=== PATIENT | female | born 1955 | race Caucasian/White ===

== ENCOUNTER 2017-10-30 19:34 | Emergency (ER) | END 2017-10-30 21:35 | disposition home or self-care (01) ==

== ENCOUNTER → 2017-10-30 | Outpatient (CLI) | payer OTHER ==
[~2017-10-30] MED LIST: AMLO5; AMLO5 PO; ASCO500; ASPI81CH; Betamethasone V15 G1; CEPH500 PO; CIPR500 PO; CYCL10 PO; DULO60; Flagyl500 MG PO; HYDACE5 PO; HYDPAM25; LOSA50 PO; METO25ER PO; MOMENI; MORP30ER PO; NAPR550 PO; Norco 5-325 Ta1 EACH PO; OPANA ER10 MG PO; OXYACE5T PO; OXYC10ER; OXYMORPHONE HCL10 M1; OXYMORPHONE HCL10 MG PO; VENL37.5ER; VOLTAREN
[2017-10-30 19:14] LABS: BASOPHILS ABSOLUTE AUTO 0.03 K/mm3 (0.00-0.23); BASOPHILS PERCENT AUTO 0 % (0-2); EOSINOPHILS PERCENT AUTO 4 % (0-6); Hematocrit 35.9 % (33.0-51.0); Hemoglobin 11.4 g/dL (11.5-16.0); IMMATURE GRAN ABSOLUTE AUTO 0.01 K/mm3 (0.00-0.10); IMMATURE GRAN PERCENT AUTO 0 % (0-1); LYMPHOCYTES ABSOLUTE AUTO 1.64 K/mm3 (0.84-5.20); LYMPHOCYTES PERCENT AUTO 22 % (21-46); MONOCYTES ABSOLUTE AUTO 0.61 K/mm3 (0.16-1.47); MONOCYTES PERCENT AUTO 8 % (4-13); Mean Corpuscular HGB 26.5 pg (26.0-34.0); Mean Corpuscular HGB Conc 31.8 g/dL (31.5-36.5); Mean Corpuscular Volume 84 fL (80-100); NEUTROPHILS ABSOLUTE AUTO 4.83 K/mm3 (1.96-9.15); NEUTROPHILS PERCENT AUTO 65 % (41-73); RDW Coefficient Variation 13.5 % (11.7-14.2); RDW Standard Deviation 41.1 fL (35.1-46.3); White Blood Cell Count 7.42 K/mm3 (4.00-11.30)
[2017-10-30 19:20] LABS: Test Name ASOL
[2017-10-30 19:21] LABS: Platelet Count 205 K/mm3 (150-400)
[2017-10-30 19:34] LABS: Alanine Aminotransfer (ALT/SGP 30 U/L (12-78); Albumin, Blood 3.4 g/dL (3.4-5.0); Albumin/Globulin Ratio 0.8 (0.8-1.8); Alk Phos 78 U/L (50-136); Anion Gap 8 mmol/L (6-16); Aspartate Aminotrans (AST/SGOT 29 U/L (12-37); Bilirubin, Total 0.3 mg/dL (0.1-1.0); Blood Urea Nitrogen 14 mg/dL (8-24); Bun/Creatinine Ratio 16.7 (12.0-20.0); CO2, Blood 27 mmol/L (21-32); Calcium, Blood 8.8 mg/dL (8.5-10.1); Chloride, Blood 102 mmol/L (98-108); Creatinine, Blood 0.84 mg/dL (0.40-1.00); Glomerular Filtration Rate >60 (60-); Glucose, Blood 107 mg/dL (70-99); Sodium, Blood 137 mmol/L (136-145); Total Protein, Blood 7.4 g/dL (6.4-8.2)
== END ==
LOC: LAB 17:23
PROVIDERS: Family Medicine
DX: K52.9 Noninfective gastroenteritis and colitis, unspecified (principal); R60.1 Generalized edema; R01.1 Cardiac murmur, unspecified
CPT/HCPCS: 80053; 85025; 85651; 86060

== ENCOUNTER 2019-04-08 20:22 | Emergency (ER) | payer OTHER ==
[~2019-04-08] VITALS: Ht 177.8 cm; Wt 90.7 kg
[2019-04-08] MEDS ORDERED: BUPRENORPHINE HC8 MG SL (21:50)
[2019-04-08 22:44] LABS: BASOPHILS ABSOLUTE AUTO 0.03 K/mm3 (0.00-0.23); BASOPHILS PERCENT AUTO 0 % (0-2); EOSINOPHILS ABSOLUTE AUTO 0.02 K/mm3 (0.00-0.68); EOSINOPHILS PERCENT AUTO 0 % (0-6); Hematocrit 40.9 % (33.0-51.0); Hemoglobin 13.2 g/dL (11.5-16.0); IMMATURE GRAN ABSOLUTE AUTO 0.04 K/mm3 (0.00-0.10); IMMATURE GRAN PERCENT AUTO 0 % (0-1); LYMPHOCYTES ABSOLUTE AUTO 0.97 K/mm3 (0.84-5.20); LYMPHOCYTES PERCENT AUTO 7 % (21-46); MONOCYTES ABSOLUTE AUTO 1.39 K/mm3 (0.16-1.47); MONOCYTES PERCENT AUTO 10 % (4-13); Mean Corpuscular HGB 26.2 pg (26.0-34.0); Mean Corpuscular HGB Conc 32.3 g/dL (31.5-36.5); Mean Corpuscular Volume 81 fL (80-100); Mean Platelet Volume 10.3 fL (9.1-12.4); NEUTROPHILS ABSOLUTE AUTO 12.16 K/mm3 (1.96-9.15); NEUTROPHILS PERCENT AUTO 83 % (41-73); Platelet Count 197 K/mm3 (150-400); RDW Standard Deviation 41.1 fL (35.1-46.3); Red Blood Cell Count 5.04 M/mm3 (3.80-5.20); White Blood Cell Count 14.61 K/mm3 (4.00-11.30)
[2019-04-08 23:01] LABS: Albumin, Blood 3.9 g/dL (3.4-5.0); Albumin/Globulin Ratio 1.1 (0.8-1.8); Bun/Creatinine Ratio 22.3 (12.0-20.0); Calcium, Blood 8.9 mg/dL (8.5-10.1); Creatinine, Blood 1.21 mg/dL (0.40-1.00); Globulin, Blood 3.5 g/dL (2.2-4.0); Potassium, Blood 4.2 mmol/L (3.5-5.5); Total Protein, Blood 7.4 g/dL (6.4-8.2)
[2019-04-09 00:21] LABS: Source, Urine Clean Catch
[2019-04-09] MEDS ORDERED: Cyclobenzaprine5 MG PO (00:24)
[2019-04-09 00:40] LABS: Bilirubin, Urine Neg (Neg); Blood, Urine Neg (Neg); Glucose Qualitative, Urine Neg (Neg); Ketones, Urine Neg (Neg); Leukocyte Esterase, Urine Neg (Neg); Nitrite, Urine Neg (Neg); Protein, Urine Neg (Neg); Specific Gravity, Urine 1.015 (1.003-1.022); Urobilinogen, Urine NORM (Normal)
[2019-04-09 00:43] LABS: Appearance, Urine Clear (Clear); Color, Urine Yellow (P-Yellow)
== END 2019-04-09 00:34 | disposition home or self-care (01) ==
LOC: ER 20:22
PROVIDERS: Emergency Medicine
DX: S92.902A Unspecified fracture of left foot, initial encounter for closed fracture (principal); S46.911A Strain of unspecified muscle, fascia and tendon at shoulder and upper arm level, right arm, initial encounter; R03.0 Elevated blood-pressure reading, without diagnosis of hypertension; R01.1 Cardiac murmur, unspecified; Z87.891 Personal history of nicotine dependence; X58.XXXA Exposure to other specified factors, initial encounter
CPT/HCPCS: 36415; 73030; 73630; 80053; 81003; 83605; 85025; 96360; 96372-59; 99284-25; A9270-GY; J1885; J7030

== ENCOUNTER → 2019-10-30 | Outpatient (CLI) | payer OTHER ==
[~2019-10-30] MED LIST changes: +BUPRENORPHINE HC8 MG SL; +Cyclobenzaprine5 MG PO; +ELIQUIS5 MG PO; +Lopressor 25 mg25 MG PO
== END | disposition home or self-care (01) ==
LOC: LAB SHORT 16:30 → LAB 16:30
DX: N39.0 Urinary tract infection, site not specified (principal)
CPT/HCPCS: 87086

== ENCOUNTER 2021-02-11 02:08 | Day surgery (SDC) | payer OTHER ==
[~2021-02-11 02:08] MED LIST changes: +CHLO25B PO; +FOLI1 PO; +METTREX2.5 PO; +NYSTRIT; +PREG75 PO; +SUBOXONE 8 MG-1 EACH SL
== END 2021-02-11 22:49 | disposition home or self-care (01) ==
LOC: WOUND 02:08
DX: L97.222 Non-pressure chronic ulcer of left calf with fat layer exposed (principal); I87.2 Venous insufficiency (chronic) (peripheral)
CPT/HCPCS: A9270; G0463

== ENCOUNTER 2021-02-18 00:14 | Day surgery (SDC) | payer OTHER | END 2021-02-18 22:45 | disposition home or self-care (01) | LOC: WOUND 00:14 | DX: L97.222 Non-pressure chronic ulcer of left calf with fat layer exposed (principal); L03.116 Cellulitis of left lower limb; I87.2 Venous insufficiency (chronic) (peripheral) | CPT/HCPCS: A9270; G0463 ==

== ENCOUNTER 2021-02-25 04:33 | Day surgery (SDC) | payer OTHER | END 2021-02-25 23:01 | disposition home or self-care (01) | LOC: WOUND 04:33 | DX: L97.222 Non-pressure chronic ulcer of left calf with fat layer exposed (principal); I87.2 Venous insufficiency (chronic) (peripheral); L03.116 Cellulitis of left lower limb | CPT/HCPCS: A9270; G0463 ==

== ENCOUNTER 2021-03-11 03:45 | Day surgery (SDC) | payer OTHER | END 2021-03-11 22:49 | disposition home or self-care (01) | LOC: WOUND 03:45 | DX: L97.222 Non-pressure chronic ulcer of left calf with fat layer exposed (principal); I87.2 Venous insufficiency (chronic) (peripheral); L03.116 Cellulitis of left lower limb | CPT/HCPCS: A9270 ==

== ENCOUNTER 2021-03-13 01:47 | Day surgery (SDC) | payer OTHER | END 2021-03-13 23:36 | disposition home or self-care (01) | LOC: WOUND 01:47 | DX: L97.222 Non-pressure chronic ulcer of left calf with fat layer exposed (principal); I87.2 Venous insufficiency (chronic) (peripheral); L03.116 Cellulitis of left lower limb ==

== ENCOUNTER 2021-03-25 03:57 | Day surgery (SDC) | payer OTHER | END 2021-03-25 23:52 | disposition home or self-care (01) | LOC: WOUND 03:57 | DX: L97.222 Non-pressure chronic ulcer of left calf with fat layer exposed (principal); L97.822 Non-pressure chronic ulcer of other part of left lower leg with fat layer exposed; I87.2 Venous insufficiency (chronic) (peripheral); L03.116 Cellulitis of left lower limb | CPT/HCPCS: A9270 ==

== ENCOUNTER 2021-04-01 06:26 | Day surgery (SDC) | payer OTHER | END 2021-04-01 22:48 | disposition home or self-care (01) | LOC: WOUND 06:26 | DX: L97.222 Non-pressure chronic ulcer of left calf with fat layer exposed (principal); L97.822 Non-pressure chronic ulcer of other part of left lower leg with fat layer exposed; L03.116 Cellulitis of left lower limb; I87.2 Venous insufficiency (chronic) (peripheral) | CPT/HCPCS: A9270 ==

== ENCOUNTER 2021-04-08 04:53 | Day surgery (SDC) | payer OTHER | END 2021-04-08 22:49 | disposition home or self-care (01) | LOC: WOUND 04:53 | DX: L97.222 Non-pressure chronic ulcer of left calf with fat layer exposed (principal); L03.116 Cellulitis of left lower limb; I87.2 Venous insufficiency (chronic) (peripheral) | CPT/HCPCS: A9270; G0463 ==

== ENCOUNTER → 2023-07-13 | Outpatient (CLI) | payer OTHER | END | disposition home or self-care (01) | LOC: LAB SHORT 07:10 → LAB 07:10 | DX: R93.89 Abnormal findings on diagnostic imaging of other specified body structures (principal) | CPT/HCPCS: 88173 ==

== ENCOUNTER → 2023-12-23 | Outpatient (CLI) | payer OTHER | LOC: LAB SHORT 17:25 → LAB 17:25 | DX: E03.9 Hypothyroidism, unspecified (principal) | CPT/HCPCS: 84443 ==

== ENCOUNTER → 2024-02-10 | Outpatient (CLI) | payer OTHER | END | disposition home or self-care (01) | LOC: LAB 14:15 → LAB SHORT 14:15 | DX: M06.9 Rheumatoid arthritis, unspecified (principal); G89.4 Chronic pain syndrome; I87.2 Venous insufficiency (chronic) (peripheral) | CPT/HCPCS: 83970 ==

== ENCOUNTER 2024-04-27 03:09 | Day surgery (SDC) | payer OTHER | END 2024-04-27 22:43 | disposition home or self-care (01) | LOC: WOUND 03:09 | DX: I87.333 Chronic venous hypertension (idiopathic) with ulcer and inflammation of bilateral lower extremity (principal); L97.812 Non-pressure chronic ulcer of other part of right lower leg with fat layer exposed; L97.822 Non-pressure chronic ulcer of other part of left lower leg with fat layer exposed; L97.322 Non-pressure chronic ulcer of left ankle with fat layer exposed; I87.2 Venous insufficiency (chronic) (peripheral); R60.0 Localized edema; I73.9 Peripheral vascular disease, unspecified | CPT/HCPCS: G0463 ==

== ENCOUNTER 2024-05-02 01:55 | Day surgery (SDC) | payer OTHER | END 2024-05-02 22:39 | disposition home or self-care (01) | LOC: WOUND 01:55 | DX: I87.333 Chronic venous hypertension (idiopathic) with ulcer and inflammation of bilateral lower extremity (principal); I87.2 Venous insufficiency (chronic) (peripheral); L97.812 Non-pressure chronic ulcer of other part of right lower leg with fat layer exposed; L97.822 Non-pressure chronic ulcer of other part of left lower leg with fat layer exposed; I73.9 Peripheral vascular disease, unspecified | CPT/HCPCS: G0463 ==

== ENCOUNTER 2024-05-23 19:02 | Inpatient (IN) | payer OTHER ==
[~2024-05-23] VITALS: Ht 172.7 cm; Wt 85.5 kg
[2024-05-23 19:28] LABS: BASOPHILS ABSOLUTE AUTO 0.03 K/mm3 (0.00-0.23); BASOPHILS PERCENT AUTO 0 % (0-2); EOSINOPHILS ABSOLUTE AUTO 0.01 K/mm3 (0.00-0.68); EOSINOPHILS PERCENT AUTO 0 % (0-6); Hematocrit 33.8 % (33.0-51.0); Hemoglobin 10.1 g/dL (11.5-16.0); IMMATURE GRAN ABSOLUTE AUTO 0.12 K/mm3 (0.00-0.10); IMMATURE GRAN PERCENT AUTO 1 % (0-1); LYMPHOCYTES ABSOLUTE AUTO 0.51 K/mm3 (0.84-5.20); LYMPHOCYTES PERCENT AUTO 3 % (21-46); MONOCYTES PERCENT AUTO 7 % (4-13); Mean Corpuscular HGB 23.1 pg (26.0-34.0); Mean Corpuscular HGB Conc 29.9 g/dL (31.5-36.5); Mean Corpuscular Volume 77 fL (80-100); Mean Platelet Volume 10.4 fL (9.1-12.4); NEUTROPHILS ABSOLUTE AUTO 16.32 K/mm3 (1.96-9.15); NEUTROPHILS PERCENT AUTO 89 % (41-73); Platelet Count 384 K/mm3 (150-400); RDW Coefficient Variation 16.4 % (11.7-14.2); RDW Standard Deviation 45.9 fL (35.1-46.3); Red Blood Cell Count 4.37 M/mm3 (3.80-5.20); White Blood Cell Count 18.29 K/mm3 (4.00-11.30)
[2024-05-23 19:35] LABS: Source, Urine Straight Cath
[2024-05-23 19:39] LABS: Appearance, Urine Clear (Clear); Blood, Urine 1+ (Neg); Color, Urine Amber (P-Yellow); Glucose Qualitative, Urine Neg (Neg); Ketones, Urine Neg (Neg); Leukocyte Esterase, Urine 1+ (Neg); Nitrite, Urine Neg (Neg); Protein, Urine 2+ (Neg); Urobilinogen, Urine 3+ (Normal)
[2024-05-23 19:47] LABS: Bilirubin, Urine 1+ (Neg)
[2024-05-23 19:50] LABS: Amorphous Mod (0-Heavy); Red Blood Cells, Urine 0-2 /hpf (0-2); Squamous Epithelial Cells Many /hpf (Few)
[2024-05-23 19:51] LABS: Bacteria Few /hpf; Granular Casts 0-2 /lpf (0)
[2024-05-23 20:14] LABS: Albumin, Blood 2.4 g/dL (3.4-5.0); Albumin/Globulin Ratio 0.5 (0.8-1.8); Bilirubin, Total 1.2 mg/dL (0.1-1.0); Bun/Creatinine Ratio 21.2 (12.0-20.0); Calcium, Blood 10.1 mg/dL (8.5-10.1); Creatinine, Blood 0.9 mg/dL (0.40-1.00); Globulin, Blood 5.2 g/dL (2.2-4.0); Potassium, Blood 4.4 mmol/L (3.5-5.5); Total Protein, Blood 7.6 g/dL (6.4-8.2)
[2024-05-23] MEDS ORDERED: Diltiazem HCl 5 MG / ML 5ML Vial IV ONE ×2 (20:15→22:00)
[2024-05-23] MEDS ORDERED: Lactated Ringer's 1,000 ML IV ONE (20:15)
[2024-05-23 20:19] LABS: Influenza A, PCR NEGATIVE (NEGATIVE); Influenza B, PCR NEGATIVE (NEGATIVE); Resp Syncytial Virus, PCR NEGATIVE (NEGATIVE); SARS-Cov-2 (COVID-19) PCR, MMC NEGATIVE (NEGATIVE)
[2024-05-23] MEDS ORDERED: CEFUROXIME SOD1.5 GM PO (20:56)
[2024-05-23] MEDS ORDERED: ESCI10 PO (20:57)
[2024-05-23] MEDS ORDERED: Lyrica300 MG PO (20:57)
[2024-05-23] MEDS ORDERED: METO50ER PO (20:58)
[2024-05-23] MEDS ORDERED: SYNTHROID50 MC1 PO (20:58)
[2024-05-23] MEDS ORDERED: TORS10 PO (20:59)
[2024-05-23] MEDS ORDERED: SPIRONOLACTONE25 MG PO (20:59)
[2024-05-23] MEDS ORDERED: Buprenorphine HCL/Naloxone HCL 8MG-2MG Tab SL ONE (21:15)
[2024-05-23] MEDS ORDERED: Ipratropium/Albuterol SulF 2.5-0.5MG/3 ML Amp INH ONE (21:15)
[2024-05-24] VITALS (11 sets, daily range): BP systolic 93–157; BP diastolic 61–88
[2024-05-24] MEDS ORDERED: Acetaminophen 325 MG TABLET PO PRN (00:25)
[2024-05-24] MEDS ORDERED: FLU VACC TS2024-25(6MOS UP)/PF 45 MCG/0.5 ML SYRINGE IM ONE (00:25)
[2024-05-24] MEDS ORDERED: NS 1,000 ML IV SCH (01:00)
[2024-05-24] MEDS ORDERED: Azithromycin 500 MG in NS 250 ML IV SCH (01:28)
[2024-05-24] MEDS ORDERED: CefTRIAXone Sodium 1,000 MG in NS 100 ML IV SCH (01:30)
[2024-05-24] MEDS ORDERED: Metoprolol Succinate 50 MG TABCR PO SCH ×2 (02:00→09:00)
[2024-05-24 02:19] LABS: Adenovirus Not Detected (NOT DETECT); Bordetella pertussis Not Detected (NOT DETECT); Chlamydophila pneumoniae Not Detected (NOT DETECT); Coronavirus 229E Not Detected (NOT DETECT); Coronavirus HKU1 Not Detected (NOT DETECT); Coronavirus NL63 Not Detected (NOT DETECT); Coronavirus OC43 Not Detected (NOT DETECT); Human Metapneumovirus Not Detected (NOT DETECT); Human Rhinovirus/Enterovirus Not Detected (NOT DETECT); Influenza A/2009-H1 Not Detected (NOT DETECT); Influenza A/H1 Not Detected (NOT DETECT); Influenza A/H3 Not Detected (NOT DETECT); Influenza B Not Detected (NOT DETECT); Mycoplasma pneumoniae Not Detected (NOT DETECT); Parainfluenza Virus 1 Not Detected (NOT DETECT); Parainfluenza Virus 2 Not Detected (NOT DETECT); Parainfluenza Virus 3 Not Detected (NOT DETECT); Parainfluenza Virus 4 Not Detected (NOT DETECT); Respiratory Syncytial Virus Not Detected (NOT DETECT); SARS-Cov-2 (COVID-19), BioFire Not Detected (NOT DETECT)
[2024-05-24 03:37] LABS: BASOPHILS ABSOLUTE AUTO 0.02 K/mm3 (0.00-0.23); BASOPHILS PERCENT AUTO 0 % (0-2); EOSINOPHILS PERCENT AUTO 0 % (0-6); Hematocrit 30.1 % (33.0-51.0); Hemoglobin 9.4 g/dL (11.5-16.0); IMMATURE GRAN ABSOLUTE AUTO 0.16 K/mm3 (0.00-0.10); IMMATURE GRAN PERCENT AUTO 1 % (0-1); LYMPHOCYTES ABSOLUTE AUTO 0.65 K/mm3 (0.84-5.20); LYMPHOCYTES PERCENT AUTO 4 % (21-46); MONOCYTES ABSOLUTE AUTO 1.48 K/mm3 (0.16-1.47); MONOCYTES PERCENT AUTO 8 % (4-13); Mean Corpuscular HGB 23.3 pg (26.0-34.0); Mean Corpuscular HGB Conc 31.2 g/dL (31.5-36.5); Mean Corpuscular Volume 75 fL (80-100); Mean Platelet Volume 10.7 fL (9.1-12.4); NEUTROPHILS ABSOLUTE AUTO 15.88 K/mm3 (1.96-9.15); NEUTROPHILS PERCENT AUTO 87 % (41-73); Platelet Count 273 K/mm3 (150-400); RDW Coefficient Variation 16.7 % (11.7-14.2); RDW Standard Deviation 44.8 fL (35.1-46.3); Red Blood Cell Count 4.03 M/mm3 (3.80-5.20); White Blood Cell Count 18.19 K/mm3 (4.00-11.30)
[2024-05-24 03:58] LABS: Albumin/Globulin Ratio 0.4 (0.8-1.8); Bilirubin, Total 0.9 mg/dL (0.1-1.0); Bun/Creatinine Ratio 19.3 (12.0-20.0); Calcium, Blood 9.6 mg/dL (8.5-10.1); Creatinine, Blood 0.78 mg/dL (0.40-1.00); Globulin, Blood 4.6 g/dL (2.2-4.0); Potassium, Blood 4.5 mmol/L (3.5-5.5); Total Protein, Blood 6.6 g/dL (6.4-8.2)
[2024-05-24] MEDS ORDERED: Metoprolol Tartrate 1 MG/ML 5 ML VIAL IV ONE (05:00)
--- NOTE | 2024-05-24 05:04 | NUR ---
PHYSICIAN COMMUNICATION CONTACTED GLUER MACHINE OPERATOR RESIDENT DR HIGH TO NOTIFY HER THAT THE PATIENT'S HEART RATE IS CURRENTLY SUSTAINING IN THE 130'S AND TOUCHING THE 170'S WITH NO PRN'S TO GIVE HER. DR HIGH ORDERED A ONE TIME DOSE OF 5 MG IV LOPRESSOR.
[2024-05-24] MEDS ORDERED: Levothyroxine Sodium 0.05 MG Tab PO SCH (06:00)
[2024-05-24] MEDS ORDERED: Diltiazem HCl 5 MG / ML 5ML Vial IV ONE (06:10)
--- NOTE | 2024-05-24 06:35 | NUR ---
SHIFT SUMMARY PATIENT ARRIVED TO PCU 08 VIA STRETCHER, SLIDE TRANSFER COMPLETED DUE TO WEAKNESS. PATIENT ABLE TO ANSWER ALL ORIENTATION QUESTIONS APPROPRIATELY, HOWEVER, IS A POOR HISTORIAN. CURRENTLY JUST SAYS "I DON'T KNOW" OVER AND OVER. PATIENT IS PLEASANT AND COOPORATIVE WITH CARE. UPON TRANSFER, PATIENT'S HEART RATE WAS IN THE 130'S BUT CAME DOWN TO 110'S-120'S ONCE SHE WAS SETTLED. HEART RATE STARTED TRENDING UP TO THE 130'S-150'S, SEE PREVIOUS NOTE, IV LOPRESSOR ADMINISTERED WHICH WAS INITIALLY EFFECTIVE BUT HEART RATE STARTED TRENDING UP TO THE 130'S-150'S. NOTIFIED DR HIGH WHO ORDERED A ONE TIME DOSE OF 10 MG IV CARDIZEM. ON ROOM AIR WITH SPO2 >90%. PATIENT HAS A CONTINUOUS DRY COUGH. PATIENT COVERED IN ABRASIONS AND REPORTS FALLING FREQUENTLY. SHE ALSO REPORTS THAT SHE LIVES WITH FAMILY, BUT THEY AREN'T HELPING HER WITH HER CARE OR FEEDING HER OF LATE.
[2024-05-24] MEDS ORDERED: Metoprolol Tartrate 1 MG/ML 5 ML VIAL IV STA (08:21)
[2024-05-24] MEDS ORDERED: Lactobacil 2-S.Thermo-Bifido 1 1 Cap PO SCH (09:00)
[2024-05-24] MEDS ORDERED: GuaiFENesin 600 MG TabCR PO SCH (09:00)
[2024-05-24] MEDS ORDERED: Buprenorphine HCL/Naloxone HCL 8MG-2MG Tab SL SCH (09:00)
[2024-05-24] MEDS ORDERED: Apixaban 5 MG Tab PO SCH (09:00)
[2024-05-24] MEDS ORDERED: Citalopram Hydrobromide 10 MG TAB PO SCH (09:00)
[2024-05-24] MEDS ORDERED: Torsemide 10 MG TAB PO SCH (09:00)
[2024-05-24] MEDS ORDERED: Pregabalin 75 MG Cap PO SCH (09:00)
[2024-05-24] MEDS ORDERED: Metoprolol Tartrate 1 MG/ML 5 ML VIAL IV PRN (09:00)
[2024-05-24] MEDS ORDERED: Spironolactone 25 MG Tab PO SCH (09:00)
[2024-05-24 11:52] LABS: Source, Urine Foley catheter
[2024-05-24 12:02] LABS: Appearance, Urine Clear (Clear); Bilirubin, Urine Neg (Neg); Blood, Urine 3+ (Neg); Color, Urine Yellow (P-Yellow); Glucose Qualitative, Urine Neg (Neg); Ketones, Urine Neg (Neg); Leukocyte Esterase, Urine Neg (Neg); Nitrite, Urine Neg (Neg); Protein, Urine 1+ (Neg); Specific Gravity, Urine 1.015 (1.003-1.022); Urobilinogen, Urine 1+ (Normal)
--- NOTE | 2024-05-24 12:05 | NUR ---
Spiritual care visit conducted. Patient is lying in bed and asleep but easily awakens to the sound of her name. She tells me about her family unit complications, her complex medical history and her concerns about the future. I provided therapeutic listening, gentle correctional counselor/case manager and prayer. Patient responded well and showed signs of improved peace.
[2024-05-24 12:24] LABS: Hyaline Casts 0-2 /lpf (0-2); Squamous Epithelial Cells Rare /hpf (Few); White Blood Cells, Urine 0-2 /hpf (0-5)
[2024-05-24 12:25] LABS: Amorphous Light (0-Heavy); Bacteria Rare /hpf
[2024-05-24] MEDS ORDERED: Vancomycin HCL 1,750 MG in NS 500 ML IV ONE (14:20)
--- NOTE | 2024-05-24 17:35 | NUR ---
SHIFT SUMMARY PT A&Ox3-4, CALLS AND COMMUNICATES NEEDS APPROPRIATELY. AT START OF SHIFT, PT RESTLESS AND CONSTANTLY SAYING "OH, I DON'T KNOW", AFTER PLACING GARNER CATH D/T RETENTION PT STOPPED SAYING THAT AND LOOKED MUCH MORE AT REST. PT IS A POOR HISTORIAN AND FORGETFUL AT TIMES. AFIB 120-150's AT START OF SHIFT, MANAGED PER EMAR BRINGING HR DOWN TO 70-90's AFIB. BP STABLE, DENIES CP/PRESSURE. SpO2> 92% RA WHILE AWAKE, 2-3L VIA NC WHILE SLEEP. PT STATES THAT THEY ARE SUPPOSED TO WEAR A CPAP AT HOME BUT ARE NONCOMPLIANT. 1 ASSIST TO TRANSFER FROM BED TO CHAIR. WOUND CARE PROVIDED. NO OTHER EVENTS, WILL REPORT TO ONCOMING RN.
[2024-05-25 00:31] VITALS: BP 123/76
[2024-05-25] MEDS ORDERED: Vancomycin HCL 1,000 MG in NS 250 ML IV SCH (02:00)
[2024-05-25 04:13] LABS: Hematocrit 29.2 % (33.0-51.0); Hemoglobin 8.4 g/dL (11.5-16.0); Mean Corpuscular HGB 22.6 pg (26.0-34.0); Mean Corpuscular HGB Conc 28.8 g/dL (31.5-36.5); Mean Corpuscular Volume 79 fL (80-100); Mean Platelet Volume 10.7 fL (9.1-12.4); Platelet Count 282 K/mm3 (150-400); RDW Coefficient Variation 16.6 % (11.7-14.2); Red Blood Cell Count 3.71 M/mm3 (3.80-5.20); White Blood Cell Count 14.73 K/mm3 (4.00-11.30)
[2024-05-25 04:50] VITALS: BP 119/71
[2024-05-25 04:53] LABS: Bun/Creatinine Ratio 20.4 (12.0-20.0); Calcium, Blood 9.6 mg/dL (8.5-10.1); Creatinine, Blood 0.69 mg/dL (0.40-1.00)
--- NOTE | 2024-05-25 06:46 | NUR ---
SHIFT SUMMARY PATIENT ALERT AND ORINETED X4, WAS A 1 ASSIST FOR TRANSFERS. PATIENT IS PLEASANT AND COOPORATIVE WITH CARE. ON CPAP WHILE SLEEPING AND ROOM AIR WHILE AWAKE WITH SPO2 >90%. PATIENT DENIES ANY CHEST PAIN OR SHORTNESS OF BREATH. VITAL SIGNS STABLE. NO ACUTE ISSUES NOTED OVERNIGHT. WILL CONTINUE TO MONITOR. CALL LIGHT WITHIN REACH.
[2024-05-25 07:38] VITALS: BP 125/73
[2024-05-25 12:00] VITALS: BP 97/66
[2024-05-25 15:39] VITALS: BP 104/70
--- NOTE | 2024-05-25 17:54 | NUR ---
SHIFT SUMMARY PT A&Ox3-4, CALLS AND COMMUNICATES NEEDS APPROPRIATELY. PT IS A POOR HISTORIAN AND FORGETFUL AT TIMES. AFIB 70-90's AFIB, BP STABLE, DENIES CP/PRESSURE. SpO2> 92% RA WHILE AWAKE, 2-3L VIA NC WHILE SLEEP. PT STATES THAT THEY ARE SUPPOSED TO WEAR A CPAP AT HOME BUT ARE NONCOMPLIANT. 1 ASSIST TO TRANSFER FROM BED TO CHAIR. WOUND CARE PROVIDED. GARNER CATH IN PLACE, PATENT, DRAINING TO GRAVITY. NO OTHER EVENTS, WILL REPORT TO ONCOMING RN.
[2024-05-25 20:43] VITALS: BP 151/82
[2024-05-26 00:07] VITALS: BP 125/73
[2024-05-26 00:59] LABS: Hematocrit 30.2 % (33.0-51.0); Hemoglobin 8.8 g/dL (11.5-16.0); Mean Corpuscular HGB 22.7 pg (26.0-34.0); Mean Corpuscular HGB Conc 29.1 g/dL (31.5-36.5); Mean Corpuscular Volume 78 fL (80-100); Mean Platelet Volume 10.2 fL (9.1-12.4); Platelet Count 291 K/mm3 (150-400); RDW Coefficient Variation 16.4 % (11.7-14.2); RDW Standard Deviation 46.5 fL (35.1-46.3); Red Blood Cell Count 3.87 M/mm3 (3.80-5.20); White Blood Cell Count 12.51 K/mm3 (4.00-11.30)
[2024-05-26 01:18] LABS: Bun/Creatinine Ratio 19.8 (12.0-20.0); Calcium, Blood 9.4 mg/dL (8.5-10.1); Creatinine, Blood 0.66 mg/dL (0.40-1.00); Vancomycin, Trough 18.6 ug/mL (5.0-10.0)
[2024-05-26] MEDS ORDERED: NS 250 ML IV PRN (02:20)
[2024-05-26 02:58] VITALS: BP 130/74
--- NOTE | 2024-05-26 05:08 | NUR ---
SHIFT SUMMARY. SHIFT HAS BEEN UNREMARKABLE. PT AOX3-4, PLEASANT, COOPERATIVE WITH CARE, CALLS APPROPRIATELY, ABLE TO MAKE NEEDS KNOWN. HAS RESTED COMFORTABLY THROUGHOUT MOST OF SHIFT. WAS ONLY ABLE TO TOLERATE CPAP FOR ABOUT AN HOUR LAST NIGHT BEFORE REQUESTING FOR IT TO BE TAKEN OFF. HAS BEEN WEARING SIMPLE MASK @ 2 L O2 WHILE SLEEPING THROUGHOUT REST OF SHIFT HAS MAINTAINED >90% SATURATION. REPORTED HEADACHE EARLY IN SHIFT THAT WAS ALLEVIATED WITH PRN TYLENOL. TELE ON, RUNNING AFIB RATE CONTROLLED. VITALS STABLE. STEADY 1-2 PERSON ASSIST TRANSFER FROM CHAIR TO BED. GARNER REMAINS IN PLACE, DRAINING TO GRAVITY WITH NO COMPLAINTS OF PAIN/PRESSURE. BED LOCKED IN LOWEST POSITION. CALL LIGHT LEFT WITHIN REACH. CONTINUING TO MONITOR.
[2024-05-26 07:39] VITALS: BP 124/60
[2024-05-26] MEDS ORDERED: Guaifenesin/Dextromethorphan Syrup 5 ML UDC PO PRN (08:10)
[2024-05-26] MEDS ORDERED: Loratadine 10 MG Tab PO SCH (09:00)
--- NOTE | 2024-05-26 09:40 | NUR ---
PT ARRIVED FROM PCU AT APPROXIMATELY 0940. PT ALERT, ORIENTED AND PLEASANT UPON ARRIVAL. VSS UPON ARRIVAL.
[2024-05-26] MEDS ORDERED: Oxacillin Sod 2,000 MG in NS 100 ML IV SCH (10:00)
[2024-05-26] MEDS ORDERED: Furosemide 10 MG/ML 4ML Vial IV ONE (12:00)
--- NOTE | 2024-05-26 12:00 | NUR ---
INCREASED O2 NEEDS. PT HAS COARSE CRACKLES T/O ALL LUNG MENG. O2 SATURATION DROPPED TO 84% WHILE ON RA AND REPORTED FEELING SHORT OF BREATH. PT PLACED ON 2L O2 VIA NC, O2 SATURATION INCREASED TO >95%. RT CALLED. PT APPROXIMATELY 1800ML FLUID POSITIVE. PT DENIES CHEST PAIN. DR. PEREZ NOTIFIED, LASIX AND BNP ORDERED.
[2024-05-26 14:50] VITALS: BP 117/63
[2024-05-26 19:26] VITALS: BP 122/82
--- NOTE | 2024-05-26 19:28 | NUR ---
SHIFT SUMMARY PATIENT TRANSFERED FROM PCU THIS AM. PATIENT WITH POSITIVE FLUID BALANCE WITH MOIST BREATH SOUNDS, LASIX GIVEN. GARNER IN PLACE WITH GOOD URINE OUTPUT. PATIENT RESPIRATORY STATUS IMPROVED AFTER LASIX GIVEN. BNP 400, DR PEREZ AWARE. UP TO CHAIR FOR LUNCH AND DINNER. SON BROUGHT HOME CPAP, RT NOTIFIED. PATIENT USED CALL LIGHT APPROPRIATELY AND IS ALERT, COOPERATIVE, AND PLEASANT. BEDIDE REPORT GIVEN TO RONALD RN BY AMALIA FERNANDES.
[2024-05-27 03:35] VITALS: BP 109/69
--- NOTE | 2024-05-27 04:51 | NUR ---
SHIFT UPDATE PT ABLE TO REST DURING SHIFT. PT SON BROUGHT IN BIPAP/HOME EQUIPMENT FOR USE WHILE IN HOSPITAL. RT AT BEDSIDE BEFORE BED; ASSISTED WITH SETUP. PT TOLERATING PO MEDS WITH APPLE SAUCE OR PUDDING. DRESSINGS REMAINED C/D/I DURING SHIFT. PT VOICED UNDERSTANDING OF PLAN OF CARE, DENIES QUESTIONS/CONCERNS AT THIS TIME. CALL LIGHT WITHIN REACH.
[2024-05-27 07:02] VITALS: BP 135/66
[2024-05-27] MEDS ORDERED: Torsemide 20 MG TAB PO SCH (09:00)
[2024-05-27] MEDS ORDERED: Furosemide 10 MG/ML 4ML Vial IV SCH ×2 (09:50→18:00)
[2024-05-27 14:17] VITALS: BP 118/75
--- NOTE | 2024-05-27 17:30 | NUR ---
ASSUMED CARE OF PATIENT AT THIS TIME.
--- NOTE | 2024-05-27 18:25 | NUR ---
PT STABLE AND AFEBRILE THIS SHIFT. PT BC POSITIVE 9-19, CATH TIP FROM PIV SENT FOR CULTURE. NEW IV PLACED. CONT ABX. PT BNP ELEVATED. PT CHANGED TO LASIX BID. CONT WER COUGH. SATS STABLE ON 2.[address] BIPAP IN USE AT NOC. URINE OUTPUT GOOD. CONT GARNER. IV AT TKO. TOLERATING DIET. NEEDS BOWEL CARE ORDERS, PT UNAWARE OF TIMING OF LAST BM. WOUND DRESSING CHANGES DONE THIS SHIFT. PT HAD BED BATH. SAT IN CHAIR MOST OF DAY. 1 ASSIST OOB. PLAN FOR HOME HEALTH AAT DISCHARGE. CARE MANAGEMENT INVOLVED.
[2024-05-27 18:56] VITALS: BP 98/74
[2024-05-27] MEDS ORDERED: Miconazole Nitrate 2% 85 GM PWD TOP SCH (20:40)
--- NOTE | 2024-05-27 22:47 | NUR ---
GOT BEDSIDE REPORT FROM DELTA FERNANDES ON PT SURG ROOM 208. TRANSFERRED PT WITH ALL BELONGINS AND MEDICATION IN DRAWER TO MEDICAL UNIT @ 3300.
[2024-05-27 22:48] VITALS: BP 107/48
--- NOTE | 2024-05-27 22:56 | NUR ---
SHIFT NOTE BEDSIDE REPORT TO DENA SORTO. PT TRANSFERRED TO MEDICAL FLOOR WITH BELONGINGS & HOME EQUIPMENT.
[2024-05-27] MEDS ORDERED: Polyethylene Glycol 3350 17 gm PO SCH (23:55)
[2024-05-28] MEDS ORDERED: Pentoxifylline400 MG PO (00:40)
[2024-05-28] MEDS ORDERED: BUPRENORPHINE HC8 MG SL (00:42)
[2024-05-28] MEDS ORDERED: ESCI10 PO (00:43)
[2024-05-28] MEDS ORDERED: CEFU500T30 PO (00:44)
[2024-05-28 04:28] VITALS: BP 132/72
[2024-05-28 05:44] LABS: Calcium, Blood 9.8 mg/dL (8.5-10.1); Creatinine, Blood 0.82 mg/dL (0.40-1.00); Potassium, Blood 3.8 mmol/L (3.5-5.5)
--- NOTE | 2024-05-28 07:27 | NUR ---
SHIFT SUMMARY NOC TRANSFER FROM SURGICAL FLOOR WITH SEPSIS LLE CELLULITS. PT A/O X 4. PLEASANT AND COOPERATIVE WITH CARE. VSS. ON O2 4L/NC, BUT RA BASELINE. USES BIPAP FOR SLEEP. PT LUNGS COARSE/RHONCHI T/O. PT ENCOURAGED TO USE FLUTTER VALVE TO HELP LOOSEN UP SECRETIONS. DURING ASSESSMENT PT REPORTS THAT LAST BM WAS AT LEAST A WEEK AGO, PT STARTED ON MIRALAX DAILY WITH FIRST DOSE GIVEN @ 0000 IN PRUNE JUICE. PT ON TELE AFIB IN 80'S. GARNER IN PLACE FOR ACUTE RETENTION. PT HAS CONSULT ORDERED WITH DR PATEL FOR LLE CELLULTITIS. DRESSING ON LLE WAS CLEANED AND REDRESSED UPON ADMIT TO MEDICAL UNIT. PT CURRENTLY RESTING WITH BED IN LOWEST POSITION, AND CALL LIGHT WITHIN REACH.
[2024-05-28 07:29] VITALS: BP 122/71
[2024-05-28 15:47] VITALS: BP 109/63
--- NOTE | 2024-05-28 18:43 | NUR ---
VSS, A-Ox4, denies SOB, states 6 out of 10 pain that was well managed with scheduled suboxone, ambulates with 1x assist and walker, on RA. Lung course diminish with rhonhi, bowel sounds normative, heart regular, NS on tele, mejia in place draining clear yellow urine. Meplex dressings on LLE, upper back and lower back C/D/I. Pt can make needs known, call palacios in hand, bed in lowest position.
[2024-05-28 20:14] VITALS: BP 120/69
[2024-05-29 04:20] VITALS: BP 117/73
[2024-05-29 05:20] LABS: Bun/Creatinine Ratio 16.1 (12.0-20.0); Calcium, Blood 10.4 mg/dL (8.5-10.1); Creatinine, Blood 0.81 mg/dL (0.40-1.00); Potassium, Blood 3.7 mmol/L (3.5-5.5)
--- NOTE | 2024-05-29 06:01 | NUR ---
SHIFT SUMMARY NOC PT A/O X 4. PLEASANT AND COOPERATIVE WITH CARE. VSS. NO ACUTE CHANGE TO REPORT. DRESSING ON LLE C/D/I, WELL DRESSING ON UPPER/MIDDLE OF BACK. CARDIOLOGY CONSULT CALLED IN FOR SANTOS[facility] CONSIDERATION FOR STAPH AUREUS BACTEREMIA DR WEST IS PURCHASING ENGINEER TODAY. PT ON O2 4L/NC SPO2 >92%, USING BIPAP FOR SLEEPING THROUGH THE NIGHT. STILL RECIEVING Q4H IV ABX COVERAGE. GARNER IN PLACE PATENT AND DRAINING YELLOW URINE TO GRAVITY. ON TELE AFIB IN 'S. PT YET TO HAVE BM GOING ON A WEEK AND STARTED MIRALAX WITH PRUNE JUICE YESTERDAY. PT CURRENTLY RESTING WITH BED IN LOWEST POSITION, AND CALL LIGHT WITHIN REACH.
[2024-05-29 07:35] VITALS: BP 113/71
[2024-05-29 08:55] LABS: BASOPHILS ABSOLUTE AUTO 0.05 K/mm3 (0.00-0.23); BASOPHILS PERCENT AUTO 1 % (0-2); EOSINOPHILS ABSOLUTE AUTO 0.15 K/mm3 (0.00-0.68); EOSINOPHILS PERCENT AUTO 1 % (0-6); Hematocrit 37.6 % (33.0-51.0); Hemoglobin 10.9 g/dL (11.5-16.0); IMMATURE GRAN ABSOLUTE AUTO 0.07 K/mm3 (0.00-0.10); IMMATURE GRAN PERCENT AUTO 1 % (0-1); LYMPHOCYTES ABSOLUTE AUTO 1.62 K/mm3 (0.84-5.20); LYMPHOCYTES PERCENT AUTO 15 % (21-46); MONOCYTES ABSOLUTE AUTO 0.99 K/mm3 (0.16-1.47); MONOCYTES PERCENT AUTO 9 % (4-13); Mean Corpuscular HGB 22.7 pg (26.0-34.0); Mean Corpuscular Volume 78 fL (80-100); Mean Platelet Volume 10.4 fL (9.1-12.4); NEUTROPHILS ABSOLUTE AUTO 8.19 K/mm3 (1.96-9.15); NEUTROPHILS PERCENT AUTO 74 % (41-73); Platelet Count 420 K/mm3 (150-400); RDW Coefficient Variation 16.8 % (11.7-14.2); RDW Standard Deviation 46.5 fL (35.1-46.3); White Blood Cell Count 11.07 K/mm3 (4.00-11.30)
[2024-05-29] MEDS ORDERED: Lactulose 20 GM/30 ML UDC PO PRN (10:05)
[2024-05-29] MEDS ORDERED: Mineral Oil 133 ML Enema PR ONE (12:40)
[2024-05-29 15:49] VITALS: BP 110/78
--- NOTE | 2024-05-29 18:44 | NUR ---
SHIFT SUMMARY PT A&OX4. PT ADMITTED DUE TO AFIB W RVR. PT ON TELE. PT REPORTS NO CHEST DISCOMFORT OR SOB. PT ON 1L O2 N/C. PT SPO2 IS 96%. PT ON RA AT BASELINE. PT HAS HX OF KYPHOSIS. PT HAS STAPH INFECTION AND RECIEVING ANTIBIOTIC. PT RECIEVED AN ENEMA DUE TO PT HAVING CONSTIPATION, PT HAD LARGE BM POST ENEMA AND REPORTS RELIEF. PT HAS CHRONIC BACK PAIN, MANAGED PER EMAR. VSS. NO ACUTE CHANGES DURING SHIFT. CALLS APPROPRIATELY, AND CALL LIGHT IN REACH.
[2024-05-29 19:48] VITALS: BP 124/72
[2024-05-29] MEDS ORDERED: Docusate Sodium 100 MG Cap PO SCH (21:00)
[2024-05-30 02:54] VITALS: BP 126/71
--- NOTE | 2024-05-30 05:09 | NUR ---
SHIFT SUMMARY: Pt is admitted for afib with RVR and is a DNR. alert and able to make needs known. Denies pain or discomfort past baseline. Pain is managed with scheduled medication. Suresh reports a fib in the 80s.
[2024-05-30 05:40] LABS: BASOPHILS ABSOLUTE AUTO 0.04 K/mm3 (0.00-0.23); BASOPHILS PERCENT AUTO 0 % (0-2); EOSINOPHILS ABSOLUTE AUTO 0.07 K/mm3 (0.00-0.68); EOSINOPHILS PERCENT AUTO 1 % (0-6); Hematocrit 33.4 % (33.0-51.0); IMMATURE GRAN ABSOLUTE AUTO 0.08 K/mm3 (0.00-0.10); IMMATURE GRAN PERCENT AUTO 1 % (0-1); LYMPHOCYTES ABSOLUTE AUTO 1.28 K/mm3 (0.84-5.20); LYMPHOCYTES PERCENT AUTO 9 % (21-46); MONOCYTES PERCENT AUTO 8 % (4-13); Mean Corpuscular HGB Conc 29.9 g/dL (31.5-36.5); Mean Corpuscular Volume 77 fL (80-100); Mean Platelet Volume 10.3 fL (9.1-12.4); NEUTROPHILS ABSOLUTE AUTO 11.17 K/mm3 (1.96-9.15); NEUTROPHILS PERCENT AUTO 81 % (41-73); Platelet Count 403 K/mm3 (150-400); RDW Standard Deviation 46.4 fL (35.1-46.3); Red Blood Cell Count 4.35 M/mm3 (3.80-5.20); White Blood Cell Count 13.74 K/mm3 (4.00-11.30)
[2024-05-30 06:27] LABS: Bun/Creatinine Ratio 16.8 (12.0-20.0); Creatinine, Blood 0.72 mg/dL (0.40-1.00); Potassium, Blood 4.2 mmol/L (3.5-5.5)
[2024-05-30 07:40] VITALS: BP 132/84
[2024-05-30] MEDS ORDERED: Furosemide 40 MG Tab PO SCH (09:00)
[2024-05-30 15:53] VITALS: BP 115/67
--- NOTE | 2024-05-30 17:56 | NUR ---
VSS, A-Ox4, denies SOB, denies any pain, ambulates with 1x assist with walker, on 1L NC. Lungs dimished, coarse with rhonchi and productive coupy cough, heart irregular, A-fib on Tele, bowel sounds normative, content of bowel, mejia in place draining clear yellow urine. Meplex dressing on LLE and upper back C/D/I, lower back dressing changed, new dressing C/D/I. Pt can make needs known, call palacios in hand, bed in lowest position.
[2024-05-30 19:53] VITALS: BP 151/105
[2024-05-31 03:31] VITALS: BP 123/82
[2024-05-31 05:05] LABS: BASOPHILS ABSOLUTE AUTO 0.03 K/mm3 (0.00-0.23); BASOPHILS PERCENT AUTO 0 % (0-2); EOSINOPHILS ABSOLUTE AUTO 0.13 K/mm3 (0.00-0.68); EOSINOPHILS PERCENT AUTO 1 % (0-6); Hematocrit 34.2 % (33.0-51.0); Hemoglobin 9.8 g/dL (11.5-16.0); IMMATURE GRAN ABSOLUTE AUTO 0.07 K/mm3 (0.00-0.10); IMMATURE GRAN PERCENT AUTO 1 % (0-1); LYMPHOCYTES ABSOLUTE AUTO 1.37 K/mm3 (0.84-5.20); LYMPHOCYTES PERCENT AUTO 12 % (21-46); MONOCYTES ABSOLUTE AUTO 1.01 K/mm3 (0.16-1.47); MONOCYTES PERCENT AUTO 9 % (4-13); Mean Corpuscular HGB 22.4 pg (26.0-34.0); Mean Corpuscular HGB Conc 28.7 g/dL (31.5-36.5); Mean Corpuscular Volume 78 fL (80-100); Mean Platelet Volume 9.9 fL (9.1-12.4); NEUTROPHILS ABSOLUTE AUTO 8.71 K/mm3 (1.96-9.15); NEUTROPHILS PERCENT AUTO 77 % (41-73); Platelet Count 380 K/mm3 (150-400); RDW Coefficient Variation 17.2 % (11.7-14.2); RDW Standard Deviation 47.8 fL (35.1-46.3); Red Blood Cell Count 4.37 M/mm3 (3.80-5.20); White Blood Cell Count 11.32 K/mm3 (4.00-11.30)
[2024-05-31 05:38] LABS: Bun/Creatinine Ratio 16.9 (12.0-20.0); Calcium, Blood 9.9 mg/dL (8.5-10.1); Creatinine, Blood 0.71 mg/dL (0.40-1.00)
--- NOTE | 2024-05-31 06:02 | NUR ---
NO ACUTE CHANGES DURING SHIFT. VSS, OXYGEN WAS REMOVED BUT PT O2 SATS DROPPED <90%, PLACED ON 1 L VIA NC, SHORTLY AFTER PT WAS PLACED ON BIPAP. DRESSINGS CDI. TELE AFIB 82 BPM. PLAN TO DC TODAY.
[2024-05-31 07:50] VITALS: BP 132/80
[2024-05-31] MEDS ORDERED: ELIQUIS5 M2 PO (10:10)
[2024-05-31] MEDS ORDERED: ROBITUSSIN HON237 ML PO (10:14)
[2024-05-31] MEDS ORDERED: VISBIOME 112.51 EACH PO (10:15)
[2024-05-31] MEDS ORDERED: AMOCLA875 PO (10:15)
[2024-05-31] MEDS ORDERED: LACT10SY PO (10:15)
--- NOTE | 2024-05-31 12:30 | NUR ---
VSS, A-Ox4, denies any pain, denies SOB, ambulates with 1x assist during shift, on RA stating 97%. Lungs diminished, course and rhonchi, heart irregular, A-fib on Tele, bowel sounds normative, had 1x BM during shift, Kern removed, voided at 1000, dressings on LLE and upper back changed C/D/I, Lower back dressing C/D/I. Pt D/C at 1120, D/C instruction given, Safety ensured.
== END 2024-05-31 11:17 | disposition home health service (06) | DRG 871 ==
LOC: ER 19:02 → PCU 05-24 00:23 → MEDS 05-24 00:23 → PCU 05-24 01:20 → SURS 05-26 09:44 → MEDS 05-27 22:38
PROVIDERS: Emergency Medicine; Family Medicine; Internal Medicine; Student in an Organized Health Care Education/Training Program; ADMIT Internal Medicine
DX: A41.01 Sepsis due to Methicillin susceptible Staphylococcus aureus (principal); I50.33 Acute on chronic diastolic (congestive) heart failure; J18.9 Pneumonia, unspecified organism; I48.11 Longstanding persistent atrial fibrillation; L03.116 Cellulitis of left lower limb; E87.20 Acidosis, unspecified; L97.228 Non-pressure chronic ulcer of left calf with other specified severity; Z66 Do not resuscitate; R65.20 Severe sepsis without septic shock; G89.29 Other chronic pain; M54.9 Dorsalgia, unspecified; I11.0 Hypertensive heart disease with heart failure; E03.9 Hypothyroidism, unspecified; G47.33 Obstructive sleep apnea (adult) (pediatric); I73.9 Peripheral vascular disease, unspecified; J40 Bronchitis, not specified as acute or chronic; F41.9 Anxiety disorder, unspecified; F32.A Depression, unspecified; E86.0 Dehydration; I87.2 Venous insufficiency (chronic) (peripheral); G62.9 Polyneuropathy, unspecified; M20.42 Other hammer toe(s) (acquired), left foot; M20.41 Other hammer toe(s) (acquired), right foot; M21.622 Bunionette of left foot; M21.621 Bunionette of right foot; L60.3 Nail dystrophy; I87.8 Other specified disorders of veins; Z96.641 Presence of right artificial hip joint; Z91.199 Patient's noncompliance with other medical treatment and regimen due to unspecified reason; Z79.01 Long term (current) use of anticoagulants; Z79.891 Long term (current) use of opiate analgesic; Z96.82 Presence of neurostimulator; Z98.1 Arthrodesis status; Z87.891 Personal history of nicotine dependence; Z79.890 Hormone replacement therapy
CPT/HCPCS: 0202U; 0241U; 36415; 70450; 71045; 73630; 73701; 74230; 80048; 80053; 80202; 81001; 83605; 83880; 84443; 84484; 85025; 85027; 87040; 87070; 87077; 87086; 87147; 87186; 87205; 92526; 92610; 92611; 93005; 93010; 93306; 93308; 93321; 94640; 94660; 94664; 94760; 94762; 96361; 96374; 96376; 97110; 97116; 97162; 97165; 97530; 97535; 99285-25; A9270; J0456; J0696; J1940; J2700; J3370; J7030; J7040; J7050; J7120; P9612; Q9967

== ENCOUNTER 2024-06-19 15:15 | Emergency (ER) | payer OTHER ==
[~2024-06-19] VITALS: Ht 170.2 cm; Wt 86.2 kg
[~2024-06-19 15:15] MED LIST changes: +AMOCLA875 PO; +CEFU500T30 PO; +CEFUROXIME SOD1.5 GM PO; +ELIQUIS5 M2 PO; +ESCI10 PO; +LACT10SY PO; +Lyrica300 MG PO; +METO50ER PO; +Pentoxifylline400 MG PO; +ROBITUSSIN HON237 ML PO; +SPIRONOLACTONE25 MG PO; +SYNTHROID50 MC1 PO; +TORS10 PO; +VISBIOME 112.51 EACH PO
[2024-06-19] MEDS ORDERED: NS 1,000 ML IV SCH (15:30)
[2024-06-19] MEDS ORDERED: Ondansetron HCl 2 MG / ML 2ML Vial IV ONE (15:30)
[2024-06-19] MEDS ORDERED: SULTRIDS PO (15:36)
[2024-06-19] MEDS ORDERED: MASOPHEN325 M3 PO (15:36)
[2024-06-19] MEDS ORDERED: NITR.4SL SL (15:37)
[2024-06-19] MEDS ORDERED: Cyclobenzaprine5 MG PO (15:37)
[2024-06-19 15:54] LABS: BASOPHILS ABSOLUTE AUTO 0.02 K/mm3 (0.00-0.23); BASOPHILS PERCENT AUTO 0 % (0-2); EOSINOPHILS ABSOLUTE AUTO 0.01 K/mm3 (0.00-0.68); EOSINOPHILS PERCENT AUTO 0 % (0-6); Hematocrit 38.7 % (33.0-51.0); Hemoglobin 11.3 g/dL (11.5-16.0); IMMATURE GRAN ABSOLUTE AUTO 0.04 K/mm3 (0.00-0.10); IMMATURE GRAN PERCENT AUTO 0 % (0-1); LYMPHOCYTES ABSOLUTE AUTO 0.65 K/mm3 (0.84-5.20); LYMPHOCYTES PERCENT AUTO 6 % (21-46); MONOCYTES ABSOLUTE AUTO 0.51 K/mm3 (0.16-1.47); MONOCYTES PERCENT AUTO 5 % (4-13); Mean Corpuscular HGB 22.5 pg (26.0-34.0); Mean Corpuscular HGB Conc 29.2 g/dL (31.5-36.5); Mean Corpuscular Volume 77 fL (80-100); Mean Platelet Volume 10.2 fL (9.1-12.4); NEUTROPHILS ABSOLUTE AUTO 9.12 K/mm3 (1.96-9.15); NEUTROPHILS PERCENT AUTO 88 % (41-73); Platelet Count 377 K/mm3 (150-400); RDW Coefficient Variation 17.7 % (11.7-14.2); RDW Standard Deviation 48.9 fL (35.1-46.3); Red Blood Cell Count 5.02 M/mm3 (3.80-5.20); White Blood Cell Count 10.35 K/mm3 (4.00-11.30)
[2024-06-19 16:00] LABS: Source, Urine Straight Cath
[2024-06-19 16:07] LABS: Appearance, Urine Clear (Clear); Bilirubin, Urine Neg (Neg); Blood, Urine Neg (Neg); Color, Urine Amber (P-Yellow); Glucose Qualitative, Urine Neg (Neg); Ketones, Urine 1+ (Neg); Leukocyte Esterase, Urine 1+ (Neg); Nitrite, Urine Neg (Neg); Protein, Urine 2+ (Neg); Urobilinogen, Urine 2+ (Normal)
[2024-06-19 16:13] LABS: Albumin, Blood 2.5 g/dL (3.4-5.0); Albumin/Globulin Ratio 0.4 (0.8-1.8); Bilirubin, Total 1.2 mg/dL (0.1-1.0); Bun/Creatinine Ratio 12.4 (12.0-20.0); Calcium, Blood 10.5 mg/dL (8.5-10.1); Creatinine, Blood 0.73 mg/dL (0.40-1.00); Globulin, Blood 5.7 g/dL (2.2-4.0); Potassium, Blood 3.8 mmol/L (3.5-5.5); Total Protein, Blood 8.2 g/dL (6.4-8.2)
[2024-06-19 16:18] LABS: Bacteria Few /hpf; Red Blood Cells, Urine 0-2 /hpf (0-2); Squamous Epithelial Cells Few /hpf (Few); Yeast/Fungi Urine Few /hpf
[2024-06-19] MEDS ORDERED: Droperidol 5 mg/2 ml Vial IV ONE (17:25)
[2024-06-19 18:53] VITALS: BP 150/73
[2024-06-19] MEDS ORDERED: ONDA4ODT MM (19:02)
[2024-06-19] MEDS ORDERED: Macrobid 100 M100 MG PO (19:02)
[2024-06-19] MEDS ORDERED: PROM25 PO (19:02)
== END 2024-06-19 19:30 | disposition home or self-care (01) ==
LOC: ER 15:15
PROVIDERS: Emergency Medicine
DX: N39.0 Urinary tract infection, site not specified (principal); K57.30 Diverticulosis of large intestine without perforation or abscess without bleeding; I48.91 Unspecified atrial fibrillation; I10 Essential (primary) hypertension; F17.210 Nicotine dependence, cigarettes, uncomplicated; Z95.820 Peripheral vascular angioplasty status with implants and grafts; Z79.01 Long term (current) use of anticoagulants; Z79.890 Hormone replacement therapy; Z79.899 Other long term (current) drug therapy
CPT/HCPCS: 74177; 80053; 81001; 83690; 85025; 87086; 93005; 93010; 96361; 96374-59; 96375; 99284-25; J1790; J2405; J7030; Q9967

== ENCOUNTER 2024-06-30 14:15 | Emergency (ER) | payer OTHER ==
[~2024-06-30] VITALS: Ht 177.8 cm; Wt 86.2 kg
[~2024-06-30 14:15] MED LIST changes: +MASOPHEN325 M3 PO; +Macrobid 100 M100 MG PO; +NITR.4SL SL; +ONDA4ODT MM; +PROM25 PO; +SULTRIDS PO
[2024-06-30] MEDS ORDERED: Morphine Sulfate 4 MG/1 ML Injection IV ONE (15:20)
[2024-06-30 15:28] LABS: BASOPHILS ABSOLUTE AUTO 0.03 K/mm3 (0.00-0.23); BASOPHILS PERCENT AUTO 0 % (0-2); EOSINOPHILS ABSOLUTE AUTO 0.14 K/mm3 (0.00-0.68); EOSINOPHILS PERCENT AUTO 1 % (0-6); Hematocrit 38.2 % (33.0-51.0); Hemoglobin 11.3 g/dL (11.5-16.0); IMMATURE GRAN ABSOLUTE AUTO 0.09 K/mm3 (0.00-0.10); IMMATURE GRAN PERCENT AUTO 1 % (0-1); LYMPHOCYTES ABSOLUTE AUTO 0.88 K/mm3 (0.84-5.20); LYMPHOCYTES PERCENT AUTO 5 % (21-46); MONOCYTES ABSOLUTE AUTO 1.64 K/mm3 (0.16-1.47); MONOCYTES PERCENT AUTO 9 % (4-13); Mean Corpuscular HGB 22.6 pg (26.0-34.0); Mean Corpuscular HGB Conc 29.6 g/dL (31.5-36.5); Mean Corpuscular Volume 77 fL (80-100); NEUTROPHILS ABSOLUTE AUTO 15.14 K/mm3 (1.96-9.15); NEUTROPHILS PERCENT AUTO 84 % (41-73); Platelet Count 326 K/mm3 (150-400); RDW Coefficient Variation 18.1 % (11.7-14.2); RDW Standard Deviation 49.5 fL (35.1-46.3); Red Blood Cell Count 4.99 M/mm3 (3.80-5.20); White Blood Cell Count 17.92 K/mm3 (4.00-11.30)
[2024-06-30 15:52] LABS: Albumin, Blood 2.6 g/dL (3.4-5.0); Albumin/Globulin Ratio 0.6 (0.8-1.8); Bilirubin, Total 0.8 mg/dL (0.1-1.0); Bun/Creatinine Ratio 21.9 (12.0-20.0); Creatinine, Blood 0.73 mg/dL (0.40-1.00); Globulin, Blood 4.5 g/dL (2.2-4.0); Magnesium, Blood 1.7 mg/dL (1.6-2.4); Potassium, Blood 3.7 mmol/L (3.5-5.5); Total Protein, Blood 7.1 g/dL (6.4-8.2)
[2024-06-30] MEDS ORDERED: Lactated Ringer's 1,000 ML IV ONE (16:45)
[2024-06-30] MEDS ORDERED: HYDROmorphone HCl/Pf 1MG SYR IV ONE (17:35)
[2024-06-30] MEDS ORDERED: Cefepime HCl 2,000 MG in NS 100 ML IV ONE (17:55)
[2024-06-30] MEDS ORDERED: OxyCODONE HCL 5 MG TAB PO ONE (19:30)
[2024-06-30] MEDS ORDERED: Vancomycin HCL 1,000 MG in NS 250 ML IV ONE (20:35)
[2024-06-30] MEDS ORDERED: HYDROmorphone HCl/Pf 1MG SYR IV PRN (21:40)
[2024-06-30] MEDS ORDERED: Diazepam 5 MG Tab PO ONE (22:15)
[2024-06-30 23:00] VITALS: BP 143/82
== END 2024-06-30 23:40 ==
LOC: ER 14:15
PROVIDERS: Student in an Organized Health Care Education/Training Program
DX: A41.9 Sepsis, unspecified organism (principal); M46.44 Discitis, unspecified, thoracic region; M46.24 Osteomyelitis of vertebra, thoracic region; J86.9 Pyothorax without fistula; F17.210 Nicotine dependence, cigarettes, uncomplicated; I48.91 Unspecified atrial fibrillation; I10 Essential (primary) hypertension; Z98.890 Other specified postprocedural states; Z79.899 Other long term (current) drug therapy
CPT/HCPCS: 36415; 71260; 74177; 80053; 83605; 83690; 83735; 85025; 87040; 87186; 96365; 96367; 96375; 96376; 99285-25; A9270; J0692; J1171; J2270; J3370; J7050; J7120; Q9967